=== PATIENT | male | born 1985 | race Caucasian/White ===

== ENCOUNTER 2022-02-14 13:12 | Emergency (ER) | payer OTHER, SELFPAY ==
[2022-02-14 13:24] VITALS: BP 128/78; PULSE 69; RESP 16; TEMP 37.3; O2SAT 99
--- NOTE | 2022-02-14 13:49 | ED.GENADULT ---
HPI - General Adult General Chief complaint: Neck Pain/Injury Stated complaint: Neck pain Source: patient Mode of arrival: ambulatory Limitations: no limitations History of Present Illness HPI narrative: Patient presents for evaluation of right-sided neck pain since this morning. He woke from sleep with the symptoms. Pain is constant, shooting, without numerical rating, worse with movement. He has had similar symptoms in the past. In the past he has pursued chiropractic treatments which have been effective. Unfortunately, chiropractor's office is closed today. He has not tried taking any medication for his symptoms. Denies any infectious symptoms including but not limited to fever, chills, respiratory symptoms. He left work due to his pain. Denies any precipitating injury. No additional complaints or concerns. Related Data Allergies Allergy/AdvReac Type Severity Reaction Status Date / Time No Known Allergies Allergy Verified 02/14/22 13:37 Review of Systems Review of Systems: CONSTITUTIONAL: Denies fever, chills, or sweats. EYES: Denies visual changes, redness, or discharge. ENT: Denies rhinorrhea, congestion, sore throat, or otalgia. CARDIOVASCULAR: Denies chest pain, palpitations, or edema. RESPIRATORY: Denies cough or dyspnea. GASTROINTESTINAL: Denies abdominal pain, nausea, vomiting, or diarrhea. GENITOURINARY: Denies dysuria or hematuria. SKIN: Denies rash or itching. MUSCULOSKELETAL: Reports right sided neck pain. Denies back pain NEUROLOGIC: Denies headache, numbness, dizziness, or weakness. PSYCHIATRIC: Denies anxiety or depression. [facility] Past Medical History Medical History No pertinent past medical history Surgical History Surgical History No pertinent past surgical history Family History Family History Mother Family history non-contributory Social History Social History (Updated 02/14/22 @ 13:52 by SANTIAGO Johnson, ) Living arrangements: with family Gender identity (if verbalized by the patient): Male Sexual Orientation (if Verbalized by the Patient): Straight or Heterosexual Spiritual care concerns: No Exam Narrative: GENERAL: Well-appearing, well-nourished, and in no acute distress. HEAD: Normocephalic, atraumatic. EYES: PERRLA and EOMI. ENT: Nares clear, no rhinorrhea or epistaxis. Mucous membranes moist. Oropharynx without tonsillar hypertrophy exudate or other lesions. Bilateral TMs pearly skaggs nonbulging NECK: Supple. No adenopathy or masses. No carotid bruits or JVD. No tenderness in midline or paraspinous muscles of the cervical spine. No tenderness over trapezius muscles. There is decreased range of motion in the neck. CHEST: Clear to auscultation. No respiratory distress. No wheezes rales or rhonchi HEART: Regular rate and rhythm. No murmur heard. Normal peripheral pulses. ABDOMEN: Soft, nontender, nondistended, normal active bowel sounds. EXTREMITIES: Normal range of motion. No edema. SKIN: Warm, dry, no rash. NEURO: No focal deficits. Alert and oriented x3. Negative Brudzinski's and Kernig's sign. PSYCH: Normal mood and affect. Course Course Emergency Course: This is a 37-year-old male who presented for evaluation of right-sided neck pain. No precipitating injury. He has had similar symptoms in the past. Pain appears to be muscular in origin. I did offer to check x-ray, which she declined. Toradol was ordered. Discussed application of warm moist heat at home. NSAIDs for pain. Add Flexeril. No meningeal signs on exam. Follow up outpatient for further evaluation and treatment. Return for worsening symptoms. Pt in agreement with plan of care. Level of Care: Express Care Visit Vital Signs Vital signs: Vital Signs Temperature 37.3 C 02/14/22 13:24 Pulse Rate 69
[2022-02-14] MEDS: KETOROLAC (*BKC) 60 MG/2 ML VIAL IM (13:54)
== END 2022-02-14 14:20 | disposition home or self-care (01) ==
PROVIDERS: Emergency Provider Nurse Practitioner
DX: M79.18 Myalgia, other site (principal)
CPT/HCPCS: 96372; 99213; G0463; J1885